=== PATIENT | female | born 1940 | race Caucasian/White ===

== ENCOUNTER 2016-09-04 13:52 | Inpatient (IN) ==
[2016-09-04] MEDS ORDERED: 0.9 % Sodium Chloride 1,000 ML ONE (18:19)
[2016-09-04] MEDS ORDERED: Naloxone 0.4 MG/ML INJ IVP PRN (18:39)
[2016-09-04 19:44] LABS: VBG HCO3 12.6 mEq/L (21-27); VBG PH 7.23 pH Units (7.32-7.42)
[2016-09-04 19:56] LABS: Calcium 8.2 mg/dL (8.6-10.8); Potassium 4.4 mEq/L (3.5-4.5)
[2016-09-04] MEDS ORDERED: Vancomycin 1,000 MG in D5% in Water 250 ML IVPB SCH (21:00)
[2016-09-04] MEDS: Sodium Bicarbonate 100 MEQ in D5% in Water 1,000 ML IVC SCH (21:00)
[2016-09-04] MEDS ORDERED: Vancomycin 1,000 MG in D5% in Water 250 ML IVPB ONE (21:00)
--- NOTE | 2016-09-04 21:40 | Internal Med History&Physical ---
<Bernarda Sharp - Last Filed: 09/05/16 00:52> Date of Encounter: 09/04/16 Time of Encounter: 21:37 Assessment and Plan (1) Acute renal failure Current visit: No Status: Acute BUN/Cr of 131/8.64 on presentation to [facility] ED. Patient reports only medical history of HTN on lisinopril, occasional advil usage prn for aches and pains. Patient also in metabolic acidosis with anion gap of 17, ABG pH 7.18. Patient denies any dysuria or change in urine output. CT of abd/pelvis showed no obstructive uropathy. UA showed large leuks, WBCs and moderate epithelials. 100mEq bicarb in D5 at 200mL/hr Bilateral renal Ultrasound and dopplers of renal arteries ordered. UA with micro, Urine protein, creatinine and sodium ordered Strict intake/output Renal diet Hold lisinopril, no NSAIDS Consulted Nephrology, spoke with Dr. Lewis, he will see patient tomorrow. Recheck of BMP this evening show improvement of BUN/Cr to 121/6.69. Recheck chemistry in the morning. Qualifiers: Acute renal failure type: unspecified Qualified Code(s): N17.9 - Acute kidney failure, unspecified (2) Metabolic acidosis Current visit: Yes Status: Acute Patient with metabolic acidosis, ABG shows pH 7.18, PCO2 29, PO2 77, HCO3 10.7. Anion Gap of 17. Likely related to kidney failure. 100mEq of bicarb in D5 at 200mL/hr Recheck of BMP showed Anion gap had improved from 17 to 14. VBG showed pH of 7.23. Recheck BMP in the morning Nephrology consulted, spoke with Dr. Lewis. (3) Sepsis Current visit: Yes Status: Acute Patient with RLL patchy infiltrate on CXR and Bilateral lower lobe centrilobular and tree-in-bud nodules on CT. Patient reporting dry cough, but denies any fever, chills or sweats. She is afebrile. WBC elevated to 12.2, RR 22 and HR in 90s, meeting sepsis criteria. Blood cultures ordered. Lactic acid ordered and normal at 0.7. Patient started on broad spectrum antibiotics, vanc and zosyn. Qualifiers: Sepsis type: sepsis due to unspecified organism Qualified Code(s): A41.9 - Sepsis, unspecified organism (4) Right lower lobe pneumonia Current visit: No Status: Acute Patient reported dry cough, but denied fever, chills, sweats. She reported poor appetite and dizziness. CXR shows RLL patchy infiltrate. WBC elevated to 12.2. Will give vanc and zosyn as patient meets sepsis criteria with mild tachycardia and tachypnea. Qualifiers: Pneumonia type: due to unspecified organism Qualified Code(s): J18.1 - Lobar pneumonia, unspecified organism (5) DVT prophylaxis Current visit: Yes Status: Acute Ambulate with assistance anti-embolic stockings heparin 5,000u SQ TID Internal Medicine - H&P: HPI Chief complaint: lightheaded Admitted From: Hospital to Hospital Transfer Plans for Post Hospital Care: Home History of present illness: Ms. Florentino is a 75 year old female with history of hypertension, who presented to [facility] emergency room with complaints of lightheadedness for the last several days she reported a decrease in appetite with stools once a day but otherwise had no episodes of passing out, no palpitations, no chest pain, no shortness of breath. She reports a dry cough. She denies any nausea, or vomiting. She denies any fever, chills, sweats. She denies any pain. Evaluation at [facility] revealed that she had acute kidney failure with BUN of 131 and creatinine of 8.64. She was in metabolic acidosis with an anion gap of 17 and pH of 7.18. White blood cell count was mildly elevated at 12.2. Head CT showed no acute abnormality. Chest x-ray showed right lower lobe patchy infiltrate. EKG showed normal sinus rhythm. CT of the abdomen and pelvis showed no obstructive uropathy, cholelithiasis, diverticulosis, left renal cyst, and bilateral lower lobe central lobe tumor and tree-in-bud nodules indicating post infectious origin. On exam, patient is alert and oriented, in no acute distress. Lungs are clear bilaterally to auscultation heart is regular rate and rhythm abdomen is nontender with positive bowel sounds. Past Med Surg Social Fam HX - Past Medical History Medical history: hypertension Psychiatric history: no psych history - Past Surgical History Surgical History: no surgical history - Social History Smoking Status: Current some day smoker (1/2 PPD) Smokeless Tobacco Status: No Alcohol use: none Drug use: none Internal Medicine - H&P: Meds Lisinopril [Zestril] 40 mg PO DAILY 09/04/16 [History] Allergies No Known Allergies Allergy (Verified 09/04/16 10:58) All Systems PM: A 10-system review of systems was performed and is negative for pertinent findings except as documented above in the HPI. - Constitutional Constitutional: no chills, no fever(s), no night sweats - EENT Eyes: no change in vision, no discharge, no pain, no photophobia Ears: no ear discharge, no ear pain, no tinnitus Nose, mouth and throat: no dysphagia, no nasal discharge, no neck pain, no sore throat - Cardiovascular Cardiovascular ROS IM: lightheadedness, no chest pain, no diaphoresis, no dyspnea, no palpitations, no syncope - Respiratory Respiratory: cough, no dyspnea, no wheezing, no excessive phlegm production - Gastrointestinal Gastrointestinal: diarrhea (Loose stool once per day for the last few days), no abdominal pain, no hematemesis, no hematochezia, no melena, no nausea, no vomiting - Genitourinary Genitourinary: no change in urinary stream, no dysuria, no flank pain, no hematuria - Musculoskeletal Musculoskeletal ROS IM: no numbness, no tingling - Integumentary Integumentary IM: no rash, no unusual bruising - Neurological Neurological ROS: no confusion, no convulsions, no focal weakness, no numbness, no tingling, no tremor(s) - Hematologic/Lymphatic Hematologic/Lymphatic: no easy bruising - Constitutional Vitals: Temp Pulse Resp BP Pulse Ox 97.9 F 97 21 143/62 96 09/04/16 19:19 09/04/16 19:19 09/04/16 19:19 09/04/16 19:19 09/04/16 19:19 General appearance: Present: A&O X 3, pleasant, no acute distress - Head Head exam: Present: atraumatic, normocephalic - Eye Eye exam: Present: PERRL, conjuntiva pink, sclera anicteric Pupils: Present: PERRL - Neck Neck exam general surgery: Present: supple, trachea midline. Absent: lymphadenopathy - Respiratory Respiratory exam: Present: CTAB. Absent: accessory muscle use, rales, rhonchi, wheezes - Cardiovascular Cardiovascular exam: Present: RRR, +S1, +S2. Absent: diastolic murmur, gallop, rubs, systolic murmur - GI/Abdominal GI/Abdominal exam: Present: normal bowel sounds, soft, no peritoneal signs. Absent: distended, tenderness - Extremities Exam Extremities exam: Present: warm, radial pulses palpable and symetrical. Absent : calf tenderness, cyanotic, pedal edema - Back Exam Back exam: Absent: CVA tenderness (L), CVA tenderness (R) - Neurological Exam Neurological exam: Present: CN II-XII intact, oriented X3, no focal deficits. Absent: facial droop, speech deficit - Skin Skin exam: Present: dry, intact Internal Med - H&P Results - Labs CBC & Chem 7: 09/04/16 19:37 Labs: BMP 09/04/16 19:37 Sodium 143 Potassium 4.4 Chloride 118 H Carbon Dioxide 11 L BUN 121 H Creatinine 6.69 H Glucose 82 Calcium 8.2 L D Labs from [facility] ED: Na 139 K 4.7 Cl 112 Co2 10 BUN 131 Cr 8.64 Glu 102 Hgb 11.0 Hct 32.8 WBC 12.2 Plt 255 ABG: pH 7.18 PCO2 29 PO2 77 HCO3 10.7 - ABG Interpretation ABG results: 09/04/16 19:37 VBG pH 7.23 L VBG pCO2 30 L VBG pO2 183 H VBG HCO3 12.6 L <Troy Mast - Last Filed: 09/08/16 10:37> Internal Medicine - H&P: HPI History of present illness: Ms. Florentino is a 75 year old female All Systems PM: A 10-system review of systems was performed and is negative for pertinent findings except as documented above in the HPI. - Constitutional Vitals: Temp Pulse Resp BP Pulse Ox 98.0 F 58 14 139/72 92 L 09/08/16 07:34 09/08/16 08:16 09/08/16 08:16 09/08/16 07:34 09/08/16 08:16 Internal Med - H&P Results - Labs CBC & Chem 7: 09/08/16 05:09 09/08/16 05:09 Labs: Short CBC 09/08/16 Range/Units 05:09 WBC 10.0 (4.3-11.1) K/mcL Hgb 8.4 L (11.5-15.4) g/dL Hct 26.7 L (35.3-44.9) % Plt Count 232 (140-400) K/mcL Neutrophils # 6.4 (1.6-8.9) K/mcL BMP 09/08/16 05:09 Sodium 141 Potassium 3.5 Chloride 106 Carbon Dioxide 24 BUN 40 H Creatinine 3.36 H Glucose 98 Calcium 9.0 Urine 09/08/16 Range/Units 09:50 Urine Color Yellow (Yellow) Urine Clarity Clear (Clear) Urine pH 7.0 (5.0-8.0) pH Units Ur Specific [place] 1.018 (1.010-1.025) Urine Protein 30 H (Neg-Trace) mg/dL Urine Glucose (UA) Normal (Normal) mg/dL - ABG Interpretation ABG results: 09/04/16 19:37 VBG pH 7.23 L VBG pCO2 30 L VBG pO2 183 H VBG HCO3 12.6 L - Impressions ITS Impressions Retroperitoneum Ultrasound 09/04/16 21:15 IMPRESSION: Increased echogenicity of the kidneys, suggestive of chronic medical renal disease. No hydronephrosis. Small cyst in the left kidney. D/ / Ricardo Mott MD / Ricardo Mott MD Interpreting Provider: Ricardo Mott MD - Attending Attestation I examined this patient and my medical decision-making was reviewed with the Advanced Practice Nurse. I agree with the documented findings, disposition and treatment plan as described except to the extent set forth below. The patient was sent from an outside hospital for evaluation and treatment of worsening renal failure and pneumonia. On exam she is in no acute distress awake alert oriented, heart is tachycardic S1-S2, lungs sounds are diminished, abdomen is soft. Plan: Will admit to our service, start IV fluids, broad-spectrum IV antibiotics. Consult nephrology.
[2016-09-04] MEDS: Piperacillin/Tazobactam 3.375 GM in D5% in Water (Mini-Bag+) 100 ML IVPB SCH (23:54)
[2016-09-05] MEDS ORDERED: Piperacillin/Tazobactam 2.25 GM in D5% in Water (Mini-Bag+) 100 ML IVPB SCH
[2016-09-05] MEDS: Sodium Bicarbonate 100 MEQ in D5% in Water 1,000 ML IVC SCH (04:41)
[2016-09-05] MEDS: *HR* Heparin 5,000 UNIT/ML VIAL SQ SCH ×3 (06:03→22:10)
[2016-09-05 06:20] LABS: Basophils % 0.1 %; Eosinophils % 0.4 %; Hemoglobin 8.7 g/dL (11.5-15.4); Immature Granulocytes % 1.5 % (0-4); Lymphocytes # 1.3 K/mcL (0.6-4.6); Mean Corpuscular HGB Conc 34.8 g/dL (31.6-35.5); Mean Platelet Volume 10.4 fL (9.4-12.4); Monocytes # 0.9 K/mcL (0.0-1.3); Monocytes % 8.4 %; Neutrophils # 8.4 K/mcL (1.6-8.9); Platelet Count 223 K/mcL (140-400); Red Blood Count 2.81 M/mcL (3.82-4.97); Red Cell Distribution Width 13.8 % (11.5-14.5); Segmented Neutrophils % 77.6 %
[2016-09-05 06:31] LABS: Calcium 8.5 mg/dL (8.6-10.8); Potassium 3.7 mEq/L (3.5-4.5)
[2016-09-05] MEDS: Piperacillin/Tazobactam 3.375 GM in D5% in Water (Mini-Bag+) 100 ML IVPB SCH ×2 (09:44→22:08)
[2016-09-05] MEDS ORDERED: Sodium Bicarbonate 100 MEQ in D5% in Water 1,000 ML IVC SCH (10:00)
[2016-09-05] MEDS ORDERED: *HR* Metoprolol 5 MG/5 ML VIAL IVP PRN (10:19)
[2016-09-05] MEDS ORDERED: GuaiFENesin Liq 200 MG/10 ML UDC PO PRN (10:21)
--- NOTE | 2016-09-05 10:22 | Internal Med Progress Note ---
Date of Encounter: 09/05/16 Time of Encounter: 10:19 - Assessment and plan (1) Acute renal failure Current Visit: No Status: Acute Assessment and plan: Acute on chronic kidney injury Retroperitoneal US: Increased echogenicity of the kidneys suggestive of chronic medial renal disease Renal function improved from previous day May have underlying component of RTA Noted to have bicarb deficit of 3amps-improved since admission Due to hyperglycemia will change the bicarb drip to 2amps of bicarb in 0.45%NS run at 125cc/hr awaiting renal artery US Nephrology consultation requested continue to hold nephrotoxic agents (holding Lisinopril at this time) Will continue to monitor renal function closely. Qualifiers: Acute renal failure type: unspecified Qualified Code(s): N17.9 - Acute kidney failure, unspecified (2) Metabolic acidosis Current Visit: Yes Status: Acute Assessment and plan: Improved from previous day Plan as listed above Unclear of patient's baseline metabolic panel (3) Right lower lobe pneumonia Current Visit: No Status: Acute Assessment and plan: Will continue empiric IV abx at this time Pharmacy to renally dose abx and closely monitor Vanco trough follow up blood cultures Qualifiers: Pneumonia type: due to unspecified organism Qualified Code(s): J18.1 - Lobar pneumonia, unspecified organism (4) Sepsis Current Visit: Yes Status: Resolved Assessment and plan: Likely secondary to PNA resolved at this time will continue treatment as listed above Qualifiers: Sepsis type: sepsis due to unspecified organism Qualified Code(s): A41.9 - Sepsis, unspecified organism (5) Hypertension Current Visit: Yes Status: Acute Assessment and plan: History of HTN holding Lisinopril at this time, given renal function BP within acceptable range Added Metoprolol 5mg IV q6h PRN SBP>150 and HR>100 Will continue to closely monitor BP. Qualifiers: Hypertension type: essential hypertension Qualified Code(s): I10 - Essential (primary) hypertension (6) DVT prophylaxis Current Visit: Yes Status: Acute Assessment and plan: Heparin SQ (7) Tobacco abuse Current Visit: Yes Status: Acute Assessment and plan: Smoking cessation counseling provided patient states she does not smoke too much daily and is trying to cut down Refused nicotine replacement therapy at this time. - Subjective Interval history: Patient seen and examined at bedside. Resting in bed and reports of feeling better. No discomfort reported at this time. Noted to have persistent cough. No overnight issues reported. Reports of being an everyday smoker. - Constitutional Vitals: Temp Pulse Resp BP Pulse Ox 98.2 F 76 17 139/62 96 09/05/16 06:41 09/05/16 09:52 09/05/16 06:41 09/05/16 06:41 09/05/16 09:52 General appearance: Present: A&O X 3, pleasant, no acute distress - Head Head exam: Present: atraumatic, normocephalic - Eye Eye exam: Present: normal appearance, conjuntiva pink, sclera anicteric - Respiratory Respiratory exam: Absent: respiratory distress, wheezes (coarse breath sounds bilaterally) - Cardiovascular Cardiovascular exam: Present: RRR, +S1, +S2. Absent: diastolic murmur, gallop, rubs, systolic murmur - GI/Abdominal GI/Abdominal exam: Present: normal bowel sounds, soft, no peritoneal signs. Absent: distended, tenderness - Extremities Exam Extremities exam: Present: warm, radial pulses palpable and symetrical. Absent : calf tenderness, cyanotic, pedal edema - Psychiatric Psychiatric exam: Present: normal affect, normal mood Internal Medicine: Result - Labs CBC & Chem 7: 09/05/16 05:38 09/05/16 05:38 Labs: Short CBC 09/05/16 Range/Units 05:38 WBC 10.8 (4.3-11.1) K/mcL Hgb 8.7 L D (11.5-15.4) g/dL Hct 25.0 L (35.3-44.9) % Plt Count 223 (140-400) K/mcL Neutrophils # 8.4 (1.6-8.9) K/mcL BMP 09/04/16 09/05/16 19:37 05:38 Sodium 143 139 Potassium 4.4 3.7 Chloride 118 H 110 H Carbon Dioxide 11 L 18 L BUN 121 H 102 H Creatinine 6.69 H 5.48 H Glucose 82 208 H Calcium 8.2 L D 8.5 L - Impressions Impressions Retroperitoneum Ultrasound 09/04/16 21:15 IMPRESSION: Increased echogenicity of the kidneys, suggestive of chronic medical renal disease. No hydronephrosis. Small cyst in the left kidney. D/ / Ricardo Mott MD / Ricardo Mott MD Interpreting Provider: Ricardo Mott MD Consult Discharge Plan - Plan Referrals: NO,PCP [Primary Care Provider] -
[2016-09-05] MEDS: Sodium Bicarbonate 100 MEQ in 0.45 % Sodium Chloride 1,000 ML IVC SCH ×2 (11:49→22:09)
--- NOTE | 2016-09-05 11:59 | Nephrology Consult Note ---
Date of Encounter: 09/05/16 Time of Encounter: 11:35 Assessment and Plan (1) Acute renal failure Current Visit: No Status: Acute ALLYSON in setting of sepsis, RLL pneumonia, decreased oral intake. No prior labs to indicate underlying CKD. Metabolic acidosis improving. Continue D5W/Bicarb IV fluids. No obstructive uropathy on CT. Renal fct improving, creat 5.48. Current urine output today 600cc. Avoid nephrotoxins. Renal workup in progress. Qualifiers: Acute renal failure type: unspecified Qualified Code(s): N17.9 - Acute kidney failure, unspecified History of Present Illness - Reason for Consult Acute Kidney Injury - History of Present Illness Ms. Florentino is a 75 year old female transferred from [facility] with ALLYSON and metabolic acidosis, creat 8.64, BUN 131, anion gap 17, pH 7.18. Ms Florentino complained of lightheadedness, decrease in appetite, denied N/V or diarrhea. She admitted dry cough, denied fever, chills, SOB or chest pain. WBC 12.2, Head CT no acute process, CXR showed RLL patchy infiltrate. CT of abd/pelvis negative for obstructive uropathy. At today's consult Ms. Florentino denies diabetes, admits hypertension but does not know how long she has had but states under good control. Admits remote NSAID use on rare occasion but denies recent use. She denies proteinuria, hematuria, renal stones or UTI's. She denies LE swelling or difficulty emptying bladder. Past Med Surg Social Fam HX - Past Medical History Medical history: hypertension Psychiatric history: no psych history - Past Surgical History Surgical History: no surgical history - Social History Smoking Status: Current some day smoker (1/2 PPD) Smokeless Tobacco Status: No Alcohol use: none Drug use: none Medications and Allergies Lisinopril [Zestril] 40 mg PO DAILY 09/04/16 [History] Allergies No Known Allergies Allergy (Verified 09/04/16 10:58) Review of Systems All Systems: reviewed and no additional remarkable complaints except as stated Exam - Vital Signs Vital signs: Initial Vital Signs Temp Pulse Resp BP Pulse Ox 98.1 F 99 22 122/77 97 09/04/16 16:23 09/04/16 16:23 09/04/16 16:23 09/04/16 16:23 09/04/16 16:23 Vital Signs - Last 8 Hours Temp Pulse Resp BP Pulse Ox 09/05/16 11:08 98.1 F 88 18 147/60 95 09/05/16 09:52 76 96 09/05/16 06:41 98.2 F 93 17 139/62 97 09/05/16 05:05 98.1 F 84 20 143/72 95 09/05/16 04:00 77 Intake and Output 09/04/16 09/05/16 09/05/16 23:59 07:59 15:59 Intake Total 1350 / 1350 1400 / 1400 Output Total 600 / 600 Balance 750 / 750 1400 / 1400 Intake: IV Fluids 1350 / 1350 1100 / 1100 Sodium Bicarbonate 100 1000 / 1000 1100 / 1100 MEQ In Dextrose 5% 1,000 ML @ 200 mls/hr IVC . Q5H30M [facility] Rx#:[id number] Zosyn 3.375 GM In 100 / 100 Dextrose 5% (Minibag+) 100 ML 100 ML @ 25 mls/hr IVPB Q12H [facility] Rx#: [id number] Vancocin 1,000 MG In 250 / 250 Dextrose 5% 250 ML @ 166. 667 mls/hr IVPB ONCE ONE Rx#:[id number] Oral 300 / 300 Output: Urine 600 / 600 Other: Meal Breakfast Percent of Meal Consumed 25% Stool Size Small Stool Consistency loose Stool Color Brown # Voids 1 # Bowel Movement Diapers 1 Weight 64.3 kg - General Appearance General appearance: well-developed, well-nourished, appears started age EENT: mucous membranes moist Neck: no JVD, no carotid bruit Additional Comments: harsh B/L breath sounds Cardiology: no edema, regular rate, regular rhythm Gastrointestinal: normoactive bowel sounds, no tenderness, no guarding Integumentary: no rash, warm and dry Neurologic: alert and oriented x3 Psychiatric: mood/affect appropriate, cooperative Results - Lab Results 09/05/16 05:38 09/05/16 05:38 Most recent lab results Calcium 8.5 mg/dL (8.6-10.8) L 09/05/16 05:38 Consult Discharge Plan - Plan Referrals: NO,PCP [Primary Care Provider] -
[2016-09-05 13:51] LABS: Creatinine,Urine 41 mg/dL; Microalbum/Creatinine Ratio,Ur 73 (0-30); Microalbumin,Urine 30 mg/L
[2016-09-06] MEDS ORDERED: Vancomycin 1,000 MG in D5% in Water 250 ML IVPB ONE
[2016-09-06 06:22] LABS: Basophils % 0.1 %; Eosinophils % 0.3 %; Hematocrit 26.3 % (35.3-44.9); Hemoglobin 8.9 g/dL (11.5-15.4); Lymphocytes # 1.1 K/mcL (0.6-4.6); Lymphocytes % 12.1 %; Mean Corpuscular HGB Conc 33.8 g/dL (31.6-35.5); Mean Corpuscular Hemoglobin 29.9 pg (28.0-33.3); Mean Corpuscular Volume 88.3 fL (83.0-100.0); Mean Platelet Volume 9.9 fL (9.4-12.4); Monocytes % 10.6 %; Neutrophils # 7.1 K/mcL (1.6-8.9); Platelet Count 230 K/mcL (140-400); Red Blood Count 2.98 M/mcL (3.82-4.97); Red Cell Distribution Width 13.5 % (11.5-14.5); Segmented Neutrophils % 74.9 %
[2016-09-06 06:36] LABS: Calcium 8.1 mg/dL (8.6-10.8); Magnesium 1.2 mg/dL (1.6-2.6); Phosphorous 2.9 mg/dL (2.3-4.7); Potassium 3.1 mEq/L (3.5-4.5)
[2016-09-06] MEDS: *HR* Heparin 5,000 UNIT/ML VIAL SQ SCH ×3 (06:55→22:07)
[2016-09-06] MEDS: Piperacillin/Tazobactam 3.375 GM in D5% in Water (Mini-Bag+) 100 ML IVPB SCH ×2 (08:19→22:09)
[2016-09-06] MEDS ORDERED: Aminoglycoside Consult 1 EACH MC ONE (08:50)
--- NOTE | 2016-09-06 08:57 | Nephrology Progress Note ---
Date of Encounter: 09/06/16 Time of Encounter: 08:50 - Assessment and Plan (1) Acute renal failure Current Visit: No Status: Acute ALLYSON in setting of sepsis, RLL pneumonia, decreased oral intake. No prior labs to indicate underlying CKD. Metabolic acidosis improved. No obstructive uropathy on CT. Renal fct improving, creat 3.84. Urine output 1275cc. Avoid nephrotoxins. Renal workup in progress. Qualifiers: Acute renal failure type: unspecified Qualified Code(s): N17.9 - Acute kidney failure, unspecified Subjective Interval history: Sitting up in bed, eating breakfast though states appetite remains down. Overall states starting to feel better. Objective - Vital Signs Vital signs: Vital Signs Temp Pulse Resp BP Pulse Ox 09/06/16 08:20 98.0 F 58 12 159/77 93 L 09/06/16 03:59 98.2 F 87 16 143/69 94 L 09/06/16 03:55 87 09/06/16 00:42 97.9 F 103 15 142/78 94 L 09/05/16 20:18 98.1 F 87 16 158/67 93 L 09/05/16 19:40 71 09/05/16 16:11 98.1 F 88 14 146/66 94 L 09/05/16 15:17 76 09/05/16 11:59 86 96 09/05/16 11:08 98.1 F 88 18 147/60 95 09/05/16 09:52 76 96 Intake and Output 09/05/16 09/06/16 09/06/16 22:59 07:59 15:59 Intake Total 903 / 903 Output Total 100 / 100 Balance 803 / 803 Intake: IV Fluids 903 / 903 Sodium Bicarbonate 100 903 / 903 MEQ In 0.45% Sodium Chloride 1000 Ml 1000 Ml 1,000 ML @ 125 mls/hr IVC .Q8H48M [facility] Rx#: [id number] Zosyn 3.375 GM In Dextrose 5% (Minibag+) 100 ML 100 ML @ 25 mls/hr IVPB Q12H [facility] Rx#: [id number] Vancocin 1,000 MG In Dextrose 5% 250 ML @ 166. 667 mls/hr IVPB ONCE ONE Rx#:[id number] Oral Output: Urine 100 / 100 Other: Meal Percent of Meal Consumed Stool Size Stool Consistency Stool Color # Voids # Bowel Movements Weight Patient Weight 09/07/16 00:59 Weight 63.2 kg - General Appearance General appearance: Present: well-developed, well-nourished, appears started age EENT: Present: mucous membranes moist Neck: Present: no JVD Additional Comments: scattered rhonchi right base Cardiology: Present: no edema, regular rate Gastrointestinal: Present: normoactive bowel sounds, no tenderness Integumentary: Present: warm and dry Neurologic: Present: alert and oriented x3 Psychiatric: Present: mood/affect appropriate, cooperative - Lab 09/06/16 06:03 09/06/16 06:03 Most recent lab results Calcium 8.1 mg/dL (8.6-10.8) L 09/06/16 06:03 Phosphorus 2.9 mg/dL (2.3-4.7) 09/06/16 06:03 Magnesium 1.2 mg/dL (1.6-2.6) L 09/06/16 06:03 Urine Creatinine 41 mg/dL 09/05/16 11:46 Consult Discharge Plan - Plan Referrals: NO,PCP [Primary Care Provider] -
[2016-09-06] MEDS ORDERED: 0.9 % Sodium Chloride 250 ML ONE (09:26)
[2016-09-06] MEDS ORDERED: Magnesium Sulfate 2 GM in D5% in Water 100 ML IVPB ONE (11:15)
[2016-09-06] MEDS ORDERED: Ondansetron 4 MG/2 ML VIAL IVP PRN (11:15)
--- NOTE | 2016-09-06 11:17 | Internal Med Progress Note ---
Date of Encounter: 09/06/16 Time of Encounter: 10:25 - Assessment and plan (1) Acute on chronic renal failure Current Visit: Yes Status: Acute Assessment and plan: Improving Acute on chronic kidney injury Non-oliguric, prerenal Multifactorial: Dehydration, Sepsis, medications Retroperitoneal US: Increased echogenicity of the kidneys suggestive of chronic medial renal disease Renal function improved today May have underlying component of RTA Renal artery doppler WNL Continue IVF Continue strict I/O monitoring Encourage liberal fluid intake Monitor Chem Continue to avoid nephrotoxins . (2) DVT prophylaxis Current Visit: Yes Status: Acute Assessment and plan: Heparin SQ (3) Hypertension Current Visit: Yes Status: Acute Assessment and plan: D/C PRN metoprolol and start po labetalol HTN is Uncontrolled Monitor closely and titrate and add medications prn Qualifiers: Hypertension type: essential hypertension Qualified Code(s): I10 - Essential (primary) hypertension (4) Metabolic acidosis Current Visit: Yes Status: Acute Assessment and plan: Resolved CO2 today 28 (5) Tobacco abuse Current Visit: Yes Status: Acute Assessment and plan: Smoking cessation counseling provided patient states she does not smoke too much daily and is trying to cut down Refused nicotine replacement therapy at this time. (6) Sepsis Current Visit: Yes Status: Resolved Assessment and plan: Likely secondary to PNA resolved at this time will continue treatment as listed above Qualifiers: Sepsis type: sepsis due to unspecified organism Qualified Code(s): A41.9 - Sepsis, unspecified organism (7) Right lower lobe pneumonia Current Visit: No Status: Acute Assessment and plan: Will continue empiric IV abx at this time-Day 3 of Zosyn and Vanco Blood culture preliminary negative X4 D/C Vanco Urine culture with dong-sensitive E.Coli, continue Zosyn Qualifiers: Pneumonia type: due to unspecified organism Qualified Code(s): J18.1 - Lobar pneumonia, unspecified organism - Subjective Interval history: 75 Y/o F Seen at bedside Initial encounter She has a PMH of CKD ???Stage, Tobacco abuse and HTN She is admitted and being managed for ALLYSON on CKD, Sepsis secondary to RLL pneumonia, Metabolic acidosis, She reports feeling better She attests improvement in her respiratory status and she does mention she is aware she has chronic kidney disease but unknown stage Cr today has imroved to 3.85, K 3.1, CO2 28 Nephrology is co-managing, input appreciated - Constitutional Vitals: Temp Pulse Resp BP Pulse Ox 98.0 F 94 12 159/77 93 L 09/06/16 08:20 09/06/16 08:20 09/06/16 08:20 09/06/16 08:20 09/06/16 09:09 General appearance: Present: A&O X 3, pleasant, no acute distress - Head Head exam: Present: atraumatic, normocephalic - Eye Eye exam: Present: PERRL, conjuntiva pink, sclera anicteric Pupils: Present: PERRL - Neck Neck exam general surgery: Present: supple, trachea midline. Absent: lymphadenopathy - Respiratory Respiratory exam: Present: CTAB. Absent: accessory muscle use, rales, rhonchi, wheezes - Cardiovascular Cardiovascular exam: Present: RRR, +S1, +S2. Absent: diastolic murmur, gallop, rubs, systolic murmur - GI/Abdominal GI/Abdominal exam: Present: normal bowel sounds, soft, no peritoneal signs. Absent: distended, tenderness - Extremities Exam Extremities exam: Present: warm, radial pulses palpable and symetrical. Absent : calf tenderness, cyanotic, pedal edema - Neurological Exam Neurological exam: Present: CN II-XII intact, oriented X3, no focal deficits. Absent: pronater drift, facial droop, speech deficit - Skin Skin exam: Present: dry Internal Medicine: Result - Labs CBC & Chem 7: 09/06/16 06:03 09/06/16 06:03 Labs: Short CBC 09/06/16 Range/Units 06:03 WBC 9.4 (4.3-11.1) K/mcL Hgb 8.9 L (11.5-15.4) g/dL Hct 26.3 L (35.3-44.9) % Plt Count 230 (140-400) K/mcL Neutrophils # 7.1 (1.6-8.9) K/mcL BMP 09/06/16 06:03 Sodium 143 Potassium 3.1 L Chloride 105 Carbon Dioxide 28 BUN 63 H D Creatinine 3.84 H Glucose 119 H Calcium 8.1 L Consult Discharge Plan - Plan Referrals: NO,PCP [Primary Care Provider] -
--- NOTE | 2016-09-06 15:14 | Arterial Study Report ---
Renal Duplex Patient Name:Radha Florentino Order Number:[id number] Procedure Date:09/05/2016 Date:1940Age:75 yrs Gender:Female Location:[facility] Room #: 2N04 Elevator Constructor Hydraulic:Jazmín Damon RVT Referring MD:Bernarda Sharp, SENIOR VALIDATION ENGINEER cooperative extension agent:None Reading MD:Atul Rojas MD , FACS Risk Factors Yes/No Hypertension Yes Smoking Current Yes Impressions: Findings: bilateral renal arteries are hemodynamically well maintained. Findings Renal Anatomy: The right kidney size measures 9.3 x 4.6 x 3.1 cm. The left kidney size measures 10.5 x 4.5 x 3.3 cm. Prior Study: No prior study available for comparison. Renal Duplex Right RAR:.8 Left RAR:1.0 Side Vessel PSV EDV RI PI Accel Aorta 126.00 18.00 0.86 Left Proximal Renal Artery 130.00 23.00 0.82 Left Mid Renal Artery 114.00 16.00 0.86 Left Distal Renal Artery 39.00 7.00 0.82 Left Renal Artery Hilum 59.00 7.00 0.88 Right Proximal Renal Artery 102.00 10.00 0.90 Right Mid Renal Artery 116.00 16.00 0.86 Right Distal Renal Artery 62.00 7.00 0.89 Right Renal Artery Hilum 37.00 4.00 0.89 Updated by Atul Rojsa MD, FACS on 09/06/2016 3:10:10 PM Atul Rojas MD electronically signed on 09/06/2016 3:10:41 PM with status of Final
[2016-09-07 05:16] LABS: Basophils % 0.2 %; Eosinophils # 0.1 K/mcL (0.0-0.6); Eosinophils % 1.1 %; Hematocrit 26.3 % (35.3-44.9); Hemoglobin 8.6 g/dL (11.5-15.4); Immature Granulocytes % 2.8 % (0-4); Lymphocytes # 1.3 K/mcL (0.6-4.6); Lymphocytes % 14.5 %; Mean Corpuscular HGB Conc 32.7 g/dL (31.6-35.5); Mean Corpuscular Hemoglobin 29.9 pg (28.0-33.3); Mean Corpuscular Volume 91.3 fL (83.0-100.0); Mean Platelet Volume 9.8 fL (9.4-12.4); Monocytes # 1.1 K/mcL (0.0-1.3); Monocytes % 11.8 %; Neutrophils # 6.2 K/mcL (1.6-8.9); Platelet Count 211 K/mcL (140-400); Red Blood Count 2.88 M/mcL (3.82-4.97); Red Cell Distribution Width 13.4 % (11.5-14.5); Segmented Neutrophils % 69.6 %
[2016-09-07 05:39] LABS: Magnesium 1.8 mg/dL (1.6-2.6); Phosphorous 3.9 mg/dL (2.3-4.7); Potassium 3.4 mEq/L (3.5-4.5)
[2016-09-07] MEDS: *HR* Heparin 5,000 UNIT/ML VIAL SQ SCH ×2 (06:48→15:27)
[2016-09-07] MEDS: Piperacillin/Tazobactam 3.375 GM in D5% in Water (Mini-Bag+) 100 ML IVPB SCH ×2 (07:37→21:32)
--- NOTE | 2016-09-07 09:42 | Nephrology Progress Note ---
Date of Encounter: 09/07/16 Time of Encounter: 09:40 - Assessment and Plan (1) Acute renal failure Current Visit: No Status: Acute The patient's renal function continues to improve with her current treatment. She remains on antibiotics for her pneumonia. I am going to contact her primary care provider to see if we can get a baseline creatinine. Qualifiers: Acute renal failure type: unspecified Qualified Code(s): N17.9 - Acute kidney failure, unspecified (2) Right lower lobe pneumonia Current Visit: No Status: Acute Qualifiers: Pneumonia type: due to unspecified organism Qualified Code(s): J18.1 - Lobar pneumonia, unspecified organism Subjective Interval history: Patient reports she is feeling better. She denies any cough sputum production or shortness of breath. Her renal function continues to improve. We do not know what her baseline renal function is. Objective - Vital Signs Vital signs: Vital Signs Temp Pulse Resp BP Pulse Ox 09/07/16 07:57 94 L 09/07/16 07:51 62 09/07/16 07:39 98.1 F 62 16 142/62 94 L 09/07/16 03:23 98.0 F 64 16 121/54 94 L 09/06/16 23:48 97.9 F 64 16 118/44 91 L 09/06/16 20:15 97.9 F 86 16 93 L 09/06/16 19:27 98.0 F 82 16 151/67 95 09/06/16 15:40 157/70 09/06/16 15:00 98.0 F 92 14 169/69 93 L 09/06/16 11:15 98.8 F 88 12 160/75 93 L Intake and Output 09/06/16 09/07/16 09/07/16 23:59 07:59 15:59 Intake Total 554 / 554 100 / 100 120 / 120 Output Total 200 / 200 Balance 354 / 354 100 / 100 120 / 120 Intake: IV Fluids 104 / 104 100 / 100 Magnesium Sulfate 2 GM In 104 / 104 Dextrose 5% 100 ML @ 100 mls/hr IVPB ONCE ONE Rx# :[id number] Zosyn 3.375 GM In 100 / 100 Dextrose 5% (Minibag+) 100 ML 100 ML @ 25 mls/hr IVPB Q12H [facility] Rx#: [id number] Oral 450 / 450 120 / 120 Output: Urine 200 / 200 Other: Meal Dinner Breakfast Percent of Meal Consumed 0% 10% Stool Size Small Small Stool Consistency liquid loose Stool Characteristics Mucoid Stool Color Brown Brown Yellow Blood Tinged # Voids 1 Weight 62.2 kg Patient Weight 09/07/16 23:59 Weight 62.2 kg - General Appearance Exam: Patient is alert and oriented. She is in no acute distress. Lungs basilar rales on the left. Heart regular rate and rhythm. Abdomen is benign. There is no lower extremity swelling. - Lab 09/07/16 04:58 09/07/16 04:58 Most recent lab results Calcium 9.0 mg/dL (8.6-10.8) 09/07/16 04:58 Phosphorus 3.9 mg/dL (2.3-4.7) 09/07/16 04:58 Magnesium 1.8 mg/dL (1.6-2.6) 09/07/16 04:58 Urine Creatinine 41 mg/dL 09/05/16 11:46 Consult Discharge Plan - Plan Referrals: NO,PCP [Primary Care Provider] -
--- NOTE | 2016-09-07 14:15 | Internal Med Progress Note ---
Date of Encounter: 09/07/16 Time of Encounter: 10:45 - Assessment and plan (1) Acute on chronic renal failure Current Visit: Yes Status: Acute Assessment and plan: Improving Acute on chronic kidney injury Non-oliguric, prerenal Multifactorial: Dehydration, Sepsis, medications Retroperitoneal US: Increased echogenicity of the kidneys suggestive of chronic medial renal disease Renal function improved today May have underlying component of RTA Renal artery doppler WNL D/C IVF Continue strict I/O monitoring Encourage liberal fluid intake Monitor Chem Continue to avoid nephrotoxins . (2) DVT prophylaxis Current Visit: Yes Status: Acute Assessment and plan: Heparin SQ (3) Hypertension Current Visit: Yes Status: Acute Assessment and plan: hypertension is better controlled on labetalol by mouth. Continue same. Qualifiers: Hypertension type: essential hypertension Qualified Code(s): I10 - Essential (primary) hypertension (4) Metabolic acidosis Current Visit: Yes Status: Acute Assessment and plan: Resolved CO2 today 26 (5) Tobacco abuse Current Visit: Yes Status: Acute Assessment and plan: Smoking cessation counseling provided patient states she does not smoke too much daily and is trying to cut down Refused nicotine replacement therapy at this time. (6) Sepsis Current Visit: Yes Status: Resolved Assessment and plan: Likely secondary to PNA resolved at this time will continue treatment as listed above Qualifiers: Sepsis type: sepsis due to unspecified organism Qualified Code(s): A41.9 - Sepsis, unspecified organism (7) Right lower lobe pneumonia Current Visit: No Status: Acute Assessment and plan: Will continue empiric IV abx at this time-Day 4 of Zosyn Blood culture preliminary negative X4 Urine culture with dong-sensitive E.Coli, continue Zosyn Qualifiers: Pneumonia type: due to unspecified organism Qualified Code(s): J18.1 - Lobar pneumonia, unspecified organism - Subjective Interval history: 75 Y/o F Seen at bedside She has a PMH of CKD ???Stage, Tobacco abuse and HTN She is admitted and being managed for ALLYSON on CKD, Sepsis secondary to RLL pneumonia, Metabolic acidosis, She reports feeling better Creatinine continues to improve, patient is afebrile, tachycardia and tachypnea has resolved - Constitutional Vitals: Temp Pulse Resp BP Pulse Ox 98 F 62 18 116/45 96 09/07/16 12:00 09/07/16 12:00 09/07/16 12:00 09/07/16 12:00 09/07/16 12:00 General appearance: Present: A&O X 3, pleasant, no acute distress - Head Head exam: Present: atraumatic, normocephalic - Eye Eye exam: Present: PERRL, conjuntiva pink, sclera anicteric Pupils: Present: PERRL - Neck Neck exam general surgery: Present: supple, trachea midline. Absent: lymphadenopathy - Respiratory Respiratory exam: Present: CTAB. Absent: accessory muscle use, rales, rhonchi, wheezes - Cardiovascular Cardiovascular exam: Present: RRR, +S1, +S2. Absent: diastolic murmur, gallop, rubs, systolic murmur - GI/Abdominal GI/Abdominal exam: Present: normal bowel sounds, soft, no peritoneal signs. Absent: distended, tenderness - Extremities Exam Extremities exam: Present: warm, radial pulses palpable and symetrical. Absent : calf tenderness, cyanotic, pedal edema - Neurological Exam Neurological exam: Present: CN II-XII intact, oriented X3, no focal deficits. Absent: pronater drift, facial droop, speech deficit - Skin Skin exam: Present: dry Internal Medicine: Result - Labs CBC & Chem 7: 09/07/16 04:58 09/07/16 04:58 Labs: Short CBC 09/07/16 Range/Units 04:58 WBC 9.0 (4.3-11.1) K/mcL Hgb 8.6 L (11.5-15.4) g/dL Hct 26.3 L (35.3-44.9) % Plt Count 211 (140-400) K/mcL Neutrophils # 6.2 (1.6-8.9) K/mcL BMP 09/07/16 04:58 Sodium 142 Potassium 3.4 L Chloride 107 Carbon Dioxide 26 BUN 48 H D Creatinine 3.47 H Glucose 108 H Calcium 9.0 Consult Discharge Plan - Plan Referrals: URSZULA IGNACIO [Other] - 09/15/16 1:20 pm NO,PCP [Non-Partnered Physician] -
--- NOTE | 2016-09-07 15:24 | Electrocardiograph Report ---
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
[2016-09-08 05:27] LABS: Basophils % 0.3 %; Eosinophils # 0.2 K/mcL (0.0-0.6); Eosinophils % 2.3 %; Hematocrit 26.7 % (35.3-44.9); Hemoglobin 8.4 g/dL (11.5-15.4); Immature Granulocytes % 3.7 % (0-4); Lymphocytes # 1.9 K/mcL (0.6-4.6); Lymphocytes % 18.6 %; Mean Corpuscular HGB Conc 31.5 g/dL (31.6-35.5); Mean Corpuscular Hemoglobin 29.5 pg (28.0-33.3); Mean Corpuscular Volume 93.7 fL (83.0-100.0); Mean Platelet Volume 10.1 fL (9.4-12.4); Monocytes # 1.1 K/mcL (0.0-1.3); Monocytes % 11.2 %; Neutrophils # 6.4 K/mcL (1.6-8.9); Platelet Count 232 K/mcL (140-400); Red Blood Count 2.85 M/mcL (3.82-4.97); Red Cell Distribution Width 13.2 % (11.5-14.5); Segmented Neutrophils % 63.9 %
[2016-09-08 05:46] LABS: Magnesium 1.8 mg/dL (1.6-2.6); Phosphorous 3.5 mg/dL (2.3-4.7); Potassium 3.5 mEq/L (3.5-4.5)
[2016-09-08] MEDS: *HR* Heparin 5,000 UNIT/ML VIAL SQ SCH ×2 (07:49→07:51)
[2016-09-08] MEDS: Piperacillin/Tazobactam 3.375 GM in D5% in Water (Mini-Bag+) 100 ML IVPB SCH (07:56)
--- NOTE | 2016-09-08 08:06 | Nephrology Progress Note ---
Date of Encounter: 09/08/16 Time of Encounter: 08:04 - Assessment and Plan (1) Acute renal failure Current Visit: No Status: Acute The patient is a clinical picture of acute kidney injury superimposed on chronic kidney disease in the setting of pneumonia and sepsis. Her renal function continues to improve. Back in October 2015 her creatinine was 2.2. She will have follow-up for her kidney disease as an outpatient following hospital discharge. Qualifiers: Acute renal failure type: unspecified Qualified Code(s): N17.9 - Acute kidney failure, unspecified (2) Right lower lobe pneumonia Current Visit: No Status: Acute Qualifiers: Pneumonia type: due to unspecified organism Qualified Code(s): J18.1 - Lobar pneumonia, unspecified organism Subjective Interval history: The patient reports she is feeling well. She denies any cough sputum production or shortness of breath. Serum creatinine continues to improve. Outpatient lab studies show that she had a creatinine of 2.2 back in October 2015. Therefore she has a history of underlying chronic kidney disease which she was unaware of. Objective - Vital Signs Vital signs: Vital Signs Temp Pulse Resp BP Pulse Ox 09/08/16 07:34 98.0 F 71 14 139/72 81 L 09/08/16 05:32 58 16 94 L 09/08/16 04:03 98.1 F 97 16 139/52 94 L 09/08/16 00:26 58 16 98 09/07/16 23:26 54 16 124/62 98 09/07/16 21:39 97.9 F 51 18 115/71 94 L 09/07/16 15:38 53 09/07/16 15:30 98.1 F 60 18 142/62 95 09/07/16 12:00 98 F 62 18 116/45 96 09/07/16 11:13 69 09/07/16 10:00 94 L Intake and Output 09/07/16 09/08/16 09/08/16 23:59 07:59 15:59 Intake Total 100 / 100 Output Total 100 / 100 Balance 0 / 0 Intake: IV Fluids 100 / 100 Zosyn 3.375 GM In 100 / 100 Dextrose 5% (Minibag+) 100 ML 100 ML @ 25 mls/hr IVPB Q12H [facility] Rx#: [id number] Output: Urine 100 / 100 Other: Stool Size Small Stool Consistency soft Stool Characteristics Pasty Stool Color Brown - General Appearance Exam: Patient is alert and oriented. She is in no acute distress. Lungs demonstrate some rales in the left base and some mild rales in the right base. Heart regular rate and rhythm. Abdomen is benign. There is no lower extremity swelling. - Lab 09/08/16 05:09 09/08/16 05:09 Most recent lab results Calcium 9.0 mg/dL (8.6-10.8) 09/08/16 05:09 Phosphorus 3.5 mg/dL (2.3-4.7) 09/08/16 05:09 Magnesium 1.8 mg/dL (1.6-2.6) 09/08/16 05:09 Urine Creatinine 41 mg/dL 09/05/16 11:46 Consult Discharge Plan - Plan Referrals: URSZULA IGNACIO [Other] - 09/15/16 1:20 pm NO,PCP [Non-Partnered Physician] -
--- NOTE | 2016-09-08 09:24 | Discharge Summary ---
Date of Encounter: 09/08/16 Time of Encounter: 09:23 - Discharge Diagnosis (1) Acute on chronic renal failure Priority: Primary Status: Acute (2) DVT prophylaxis Priority: Secondary Status: Acute (3) Hypertension Priority: Secondary Status: Chronic Qualifiers: Hypertension type: essential hypertension Qualified Code(s): I10 - Essential (primary) hypertension (4) Metabolic acidosis Priority: Primary Status: Acute (5) Tobacco abuse Priority: Secondary Status: Chronic (6) Sepsis Priority: Primary Status: Resolved Qualifiers: Sepsis type: sepsis due to unspecified organism Qualified Code(s): A41.9 - Sepsis, unspecified organism (7) Right lower lobe pneumonia Priority: Primary Status: Acute Qualifiers: Pneumonia type: due to unspecified organism Qualified Code(s): J18.1 - Lobar pneumonia, unspecified organism - Discharge Medications Prescriptions: Amoxicillin/Clavulanate [Augmentin] 875 mg PO BIDWM #6 tablet Labetalol [Trandate] 300 mg PO BID #90 tablet Home Medications: Amoxicillin/Clavulanate [Augmentin] 875 mg PO BIDWM #6 tablet 09/08/16 [Rx] Labetalol [Trandate] 300 mg PO BID #90 tablet 09/08/16 [Rx] Allergies/Adverse Reactions: Allergies No Known Allergies Allergy (Verified 09/04/16 10:58) Procedures/tests Complete & Pending: Procedures Performed prior 72 hours Category Date Time Status ECG 12 lead ECG [ECG] Routine Y 09/05/16 15:26 Completed EV renal artery image Routine Y 09/05/16 19:27 Completed Date of admission: 09/04/16 18:39 Primary care physician: Eugenio Rizzo Consults: 09/04/16 19:29 Consult to Nephrology [CONS] Routine Consulting Provider: [facility] Reason for Consult: 75F with Acute kidney failure and metabolic acidosis. Cr 8.64 Call Completed: Yes 09/07/16 07:16 dietary consult [Consult to Nutrition] [CONS] Routine Comment: Consulting Provider: NUTRITION Reason for Dietary Consult: Supplemental Nutrition Discharging clinician: Pako Barragan Anticipated date of discharge: 09/08/16 - Patient Status Disposition: Home, Self-Care Condition: Fair Functional capacity at discharge: independent ambulation Overall status at discharge: patient is progressing back to baseline - Discharge Instructions Follow Up With: EUGENIO RIZZO [Other] - 09/15/16 1:20 pm Tom Lewis DO [Non-Partnered Physician] - 10/12/16 11:45 am (PLEASE TAKE INSURANCE CARDS, PHOTO ID AND LIST OF ALL MEDICATIONS) NO,PCP [Non-Partnered Physician] - - Diet and Activity Activity: resume usual activities as tolerated Diet: low fat, low cholesterol, low salt diet, other (renal diet) Interval History: See below Hospital course: Ms. Florentino is a 75 year old female 75-year-old female with past medical history of hypertension, chronic kidney disease stage III, tobacco abuse. She presented to [facility] emergency room with complaints of lightheadedness for the last several days she reported a decrease in appetite with stools once a day but otherwise had no episodes of passing out, no palpitations, no chest pain, no shortness of breath. She reported a dry cough. Evaluation at [facility] revealed that she had acute kidney failure with BUN of 131 and creatinine of 8.64. She was in metabolic acidosis with an anion gap of 17 and pH of 7.18. White blood cell count was mildly elevated at 12.2. Head CT showed no acute abnormality. Chest x-ray showed right lower lobe patchy infiltrate. EKG showed normal sinus rhythm. CT of the abdomen and pelvis showed no obstructive uropathy, cholelithiasis, diverticulosis, left renal cyst, and bilateral lower lobe central lobe tree-in-bud nodules indicating post infectious/inflammatory origin She Was admitted to the hospital for management of acute on chronic renal failure, sepsis secondary to right lower lobe pneumonia, and hand gap metabolic acidosis secondary to ALLYSON on CKD Acute kidney injury was non-oliguric, prerenal, multifactorial secondary to dehydration, sepsis, and possible exacerbation by patient's home dose of lisinopril and hydrochlorothiazide. She was started on IV fluid hydration, nephrotoxins were avoided. Renal ultrasound revealed increased echogenicity of the kidneys suggestive of chronic medical renal disease and renal artery Doppler was within normal limits. Renal function improved. The patient's baseline creatinine is 2.2, creatinine has improved from 8.6, to 3.4 today. She is seen at bed side this morning, she has no new complaints, sepsis is resolved, and she is stable to be discharged home She is educated to follow up with her PCP, and kidney specialist outside. She has right lower lobe pneumonia and was treated with Zosyn and vancomycin initially, blood cultures were negative and his vancomycin was discontinued, she will be discharged on Augmentin by mouth to complete 7 days of therapy. Her home Lisinopril-HCTZ was no resumed and has been discontinued due to worsening renal function, she was started on labetalol po for HTN, with good response. I Spent 3 minutes educating patient about tobacco cessation. She does not require any nicotine replacement at this time. She also refused a flu and pneumococcal vaccines. Time spent discussing smoking cessation with patient: 3 to 10 minutes - Time Spent with Patient Total time spent providing and/or coordinating discharge services: Less than 30 minutes - Constitutional Vitals: Temp Pulse Resp BP Pulse Ox 98.0 F 58 14 139/72 92 L 09/08/16 07:34 09/08/16 08:16 09/08/16 08:16 09/08/16 07:34 09/08/16 08:16 General appearance: Present: A&O X 3, pleasant, no acute distress - Head Head exam: Present: atraumatic, normocephalic - Eye Eye exam: Present: PERRL, conjuntiva pink, sclera anicteric Pupils: Present: PERRL - Neck Neck exam general surgery: Present: supple, trachea midline. Absent: lymphadenopathy - Respiratory Respiratory exam: Present: CTAB. Absent: accessory muscle use, rales, rhonchi, wheezes - Cardiovascular Cardiovascular exam: Present: RRR, +S1, +S2. Absent: diastolic murmur, gallop, rubs, systolic murmur - GI/Abdominal GI/Abdominal exam: Present: normal bowel sounds, soft, no peritoneal signs. Absent: distended, tenderness - Extremities Exam Extremities exam: Present: warm, radial pulses palpable and symetrical. Absent : calf tenderness, cyanotic, pedal edema - Neurological Exam Neurological exam: Present: CN II-XII intact, oriented X3, no focal deficits. Absent: pronater drift, facial droop, speech deficit - Skin Skin exam: Present: dry, intact
[2016-09-08 10:00] LABS: Bilirubin,Urine Negative (Negative); Blood,Urine Small (Negative); Clarity,Urine Clear (Clear); Color,Urine Yellow (Yellow); Glucose,Urine (UA) Normal (Normal); Ketones,Urine Negative (Negative); Leukocyte Esterase,Urine Negative (Negative); Nitrite,Urine Negative (Negative); Protein,Urine 30 mg/dL (Neg-Trace); Specific Gravity,Urine 1.018 (1.010-1.025); Urobilinogen,Urine Normal (Normal)
[2016-09-08 10:02] LABS: Bacteria,Urine None Seen per hpf (None-Few); Hyaline Casts,Urine None Seen per lpf (None-Few); RBC,Urine 0-3 per hpf (0-3); Squamous Epithelial Cell,Urine Many per lpf (None-Few)
[2016-09-08 10:50] VITALS: BP 120/86
== END 2016-09-08 15:20 | disposition home or self-care (01) | DRG 871 ==
LOC: 2NNU → SUATTDRO 18:39
PROVIDERS: ADMIT Internal Medicine; ATTEND Internal Medicine

== ENCOUNTER 2021-11-08 09:15 | Observation (INO) ==
[2021-11-08 09:24] VITALS: PULSE 78
[2021-11-08 11:49] LABS: Basophils % 0.1 %; Eosinophils % 0.3 %; Hematocrit 33.9 % (35.3-44.9); Hemoglobin 10.3 g/dL (11.5-15.4); Immature Granulocytes % 0.7 % (0-4); Lymphocytes # 0.9 K/mcL (0.6-4.6); Lymphocytes % 6.5 %; Mean Corpuscular HGB Conc 30.4 g/dL (31.6-35.5); Mean Corpuscular Hemoglobin 34.3 pg (28.0-33.3); Mean Platelet Volume 11.1 fL (9.4-12.4); Monocytes # 0.9 K/mcL (0.0-1.3); Monocytes % 6.3 %; Neutrophils # 11.9 K/mcL (1.6-8.9); Nucleated Red Blood Cells 0.8 /100 WBC (0); Platelet Count 264 K/mcL (140-400); Segmented Neutrophils % 86.1 %; White Blood Count 13.8 K/mcL (4.3-11.1)
[2021-11-08 12:08] LABS: Macrocytosis Present (Not Present); Platelet Estimate Normal (Normal)
[2021-11-08 12:09] LABS: Calcium 9.1 mg/dL (8.6-10.3); Potassium 4.1 mEq/L (3.5-5.1)
[2021-11-08 12:28] VITALS: O2SAT 98
[2021-11-08] MEDS ORDERED: 0.9 % Sodium Chloride 250 ML IVC PRN (13:26)
[2021-11-08] MEDS ORDERED: 0.9 % Sodium Chloride 1,000 ML PRIME SCH (13:30)
[2021-11-08] MEDS ORDERED: Naloxone 0.4 MG/ML INJ IVP PRN (13:54)
[2021-11-08 14:53] LABS: Hepatitis B Surface Antibody < 3.10 mIU/mL
[2021-11-08 15:04] LABS: Hepatitis B Surface Antigen Nonreactive (Nonreactive)
[2021-11-08 18:18] VITALS: BP 117/54; TEMP 97.9
== END 2021-11-08 18:05 | disposition home or self-care (01) ==
LOC: 2ANU 09:15 → EMEROOARM 09:15 → 2ANU 14:10
PROVIDERS: ADMIT Student in an Organized Health Care Education/Training Program; ATTEND Student in an Organized Health Care Education/Training Program

== ENCOUNTER 2021-11-18 20:53 | Inpatient (IN) ==
[2021-11-19] MEDS ORDERED: Melatonin 3 MG TABLET PO PRN (00:30)
[2021-11-19] MEDS ORDERED: Ondansetron 4 MG/2 ML VIAL IVP PRN (00:30)
[2021-11-19] MEDS ORDERED: Naloxone 0.4 MG/ML INJ IVP PRN (00:30)
[2021-11-19] MEDS ORDERED: *HR* Heparin 5,000 UNIT/ML VIAL IVP PRN (00:34)
[2021-11-19 01:29] LABS: Basophils % 0.2 %; Eosinophils % 0.1 %; Hematocrit 28.9 % (35.3-44.9); Hemoglobin 8.5 g/dL (11.5-15.4); Lymphocytes % 5.4 %; Mean Corpuscular HGB Conc 29.4 g/dL (31.6-35.5); Mean Corpuscular Hemoglobin 32.2 pg (28.0-33.3); Mean Corpuscular Volume 109.5 fL (83.0-100.0); Mean Platelet Volume 12.2 fL (9.4-12.4); Monocytes # 1.8 K/mcL (0.0-1.3); Monocytes % 9.6 %; Neutrophils # 15.2 K/mcL (1.6-8.9); Nucleated Red Blood Cells 1.3 /100 WBC (0); Platelet Count 240 K/mcL (140-400); Red Blood Count 2.64 M/mcL (3.82-4.97); Red Cell Distribution Width 20.2 % (11.5-14.5); Segmented Neutrophils % 83.7 %; White Blood Count 18.1 K/mcL (4.3-11.1)
[2021-11-19 01:36] LABS: Heparin anti-factor XA UFH 0.54 IU/mL (0.30-0.70); INR 1.4; Prothrombin Time 15.4 Seconds (9.4-12.1)
[2021-11-19 01:56] LABS: Albumin 2.8 g/dL (3.5-5.7); Albumin/Globulin Ratio 1.3 (1.1-2.2); Bilirubin,Total 0.4 mg/dL (0.3-1.0); Globulin 2.1 g/dL (2.4-3.5); Phosphorous 6.1 mg/dL (2.7-4.5); Potassium 3.4 mEq/L (3.5-5.1); Total Protein 4.9 g/dL (6.4-8.9); Troponin I 0.99 ng/mL (< 0.04)
[2021-11-19] MEDS: Heparin 25,000UNIT/250ML 1/2NS 25,000 UNIT/250 ML IV.SOLN IVC SCH (02:19)
[2021-11-19] MEDS ORDERED: Perflutren Lipid Microsphere 1.3 ML in 0.9 % Sodium Chloride 8.7 ML IVP PRN (03:55)
[2021-11-19] MEDS: Aspirin Enteric Coated 81 MG Tablet PO SCH (08:38)
[2021-11-19 08:40] LABS: Basophils % 0.1 %; Eosinophils % 0.1 %; Hematocrit 30.9 % (35.3-44.9); Hemoglobin 9.2 g/dL (11.5-15.4); Immature Granulocytes % 1.2 % (0-4); Lymphocytes # 0.7 K/mcL (0.6-4.6); Lymphocytes % 3.8 %; Mean Corpuscular HGB Conc 29.8 g/dL (31.6-35.5); Mean Corpuscular Hemoglobin 32.9 pg (28.0-33.3); Mean Corpuscular Volume 110.4 fL (83.0-100.0); Mean Platelet Volume 11.9 fL (9.4-12.4); Monocytes # 1.4 K/mcL (0.0-1.3); Monocytes % 8.3 %; Nucleated Red Blood Cells 1.7 /100 WBC (0); Platelet Count 261 K/mcL (140-400); Red Cell Distribution Width 19.9 % (11.5-14.5); Segmented Neutrophils % 86.5 %; White Blood Count 17.3 K/mcL (4.3-11.1)
[2021-11-19 08:57] LABS: Anisocytosis 1+ (Not Present); Macrocytosis Present (Not Present); Platelet Estimate Normal (Normal)
[2021-11-19] MEDS: Cefepime HCl 1,000 MG in 0.9 % Sodium Chloride 10 ML IVP SCH (18:09)
[2021-11-20 03:07] LABS: Basophils # 0.1 K/mcL (0.0-0.2); Basophils % 0.3 %; Eosinophils # 0.1 K/mcL (0.0-0.6); Eosinophils % 0.7 %; Hematocrit 26.9 % (35.3-44.9); Hemoglobin 8.1 g/dL (11.5-15.4); Immature Granulocytes % 1.6 % (0-4); Lymphocytes # 1.2 K/mcL (0.6-4.6); Lymphocytes % 6.4 %; Mean Corpuscular HGB Conc 30.1 g/dL (31.6-35.5); Mean Corpuscular Hemoglobin 32.8 pg (28.0-33.3); Mean Corpuscular Volume 108.9 fL (83.0-100.0); Mean Platelet Volume 12.3 fL (9.4-12.4); Monocytes % 10.3 %; Neutrophils # 15.6 K/mcL (1.6-8.9); Nucleated Red Blood Cells 2.5 /100 WBC (0); Platelet Count 250 K/mcL (140-400); Red Blood Count 2.47 M/mcL (3.82-4.97); Segmented Neutrophils % 80.7 %; White Blood Count 19.3 K/mcL (4.3-11.1)
[2021-11-20 03:27] LABS: Calcium 8.7 mg/dL (8.6-10.3)
[2021-11-20 03:36] LABS: % Iron Saturation 31 % (15-50); Iron 50 mcg/dL (50-170); Transferrin 115 mg/dL (203-362)
[2021-11-20 03:39] LABS: Ferritin 350 ng/mL (10-120)
[2021-11-20 04:34] LABS: Hepatitis B Surface Antibody < 3.10 mIU/mL
[2021-11-20 04:44] LABS: Hepatitis B Surface Antigen Nonreactive (Nonreactive)
[2021-11-20] MEDS ORDERED: Ethyl Chloride Spray Bottle (104 SPRAY/BOTTLE) TP PRN (07:26)
[2021-11-20] MEDS ORDERED: 0.9 % Sodium Chloride 250 ML IVC PRN (07:26)
[2021-11-20] MEDS ORDERED: 0.9 % Sodium Chloride 2,000 ML PRIME SCH (07:30)
[2021-11-20] MEDS: Aspirin Enteric Coated 81 MG Tablet PO SCH (09:34)
[2021-11-20] MEDS: Heparin 25,000UNIT/250ML 1/2NS 25,000 UNIT/250 ML IV.SOLN IVC SCH ×2 (12:56)
[2021-11-20] MEDS ORDERED: Albumin 25% 25gram/100mL 25 GM/100 ML IV.SOLN IVPB ONE (12:59)
[2021-11-20] MEDS: Cefepime HCl 1,000 MG in 0.9 % Sodium Chloride 10 ML IVP SCH (17:09)
[2021-11-20] MEDS: *HR* Heparin 5,000 UNIT/ML VIAL IVP PRN (20:11)
[2021-11-21 02:41] LABS: Basophils % 0.2 %; Eosinophils # 0.3 K/mcL (0.0-0.6); Eosinophils % 1.5 %; Hematocrit 25.3 % (35.3-44.9); Hemoglobin 7.4 g/dL (11.5-15.4); Immature Granulocytes % 2.8 % (0-4); Lymphocytes # 1.3 K/mcL (0.6-4.6); Mean Corpuscular HGB Conc 29.2 g/dL (31.6-35.5); Mean Corpuscular Hemoglobin 32.9 pg (28.0-33.3); Mean Corpuscular Volume 112.4 fL (83.0-100.0); Mean Platelet Volume 12.4 fL (9.4-12.4); Monocytes # 1.7 K/mcL (0.0-1.3); Monocytes % 8.8 %; Nucleated Red Blood Cells 3.7 /100 WBC (0); Platelet Count 207 K/mcL (140-400); Red Blood Count 2.25 M/mcL (3.82-4.97); Red Cell Distribution Width 20.4 % (11.5-14.5); Segmented Neutrophils % 79.7 %; White Blood Count 18.8 K/mcL (4.3-11.1)
[2021-11-21 03:01] LABS: Calcium 8.4 mg/dL (8.6-10.3); Potassium 3.6 mEq/L (3.5-5.1)
[2021-11-21 03:12] LABS: Anisocytosis 2+ (Not Present); Macrocytosis Present (Not Present); Platelet Estimate Normal (Normal)
[2021-11-21] MEDS: *HR* Heparin 5,000 UNIT/ML VIAL IVP PRN (09:59)
[2021-11-21] MEDS: Aspirin Enteric Coated 81 MG Tablet PO SCH (10:00)
[2021-11-21] MEDS ORDERED: *HR* Midazolam HCl 5 MG/5 ML VIAL IVP PRN (10:37)
[2021-11-21] MEDS ORDERED: *HR* FentaNYL (PF) 100 MCG/2 ML VIAL IVP PRN (10:37)
[2021-11-21] MEDS ORDERED: 0.9 % Sodium Chloride 500 ML IVC ONE (10:37)
[2021-11-21] MEDS ORDERED: Lidocaine Viscous Oral Soln 15 ML SOLUTION MM PRN (10:37)
[2021-11-21] MEDS ORDERED: ISOVUE-370 200 ML INFUS..BTL ONE (12:48)
[2021-11-21] MEDS ORDERED: *HR* Heparin 10,000 UNIT/10 ML VIAL ONE (12:48)
[2021-11-21] MEDS ORDERED: Nitroglycerin 1,000 MCG/5 ML VIAL IV ONE (12:48)
[2021-11-21] MEDS ORDERED: Heparin 1,000 UNITS/500 mL 500 ML ONE (12:48)
[2021-11-21] MEDS ORDERED: 0.9 % Sodium Chloride 2,000 ML ONE (12:48)
[2021-11-21] MEDS ORDERED: *HR* FentaNYL (PF) 100 MCG/2 ML VIAL ONE (13:33)
[2021-11-21] MEDS ORDERED: *HR* Midazolam HCl 2 MG/2 ML VIAL ONE (13:33)
[2021-11-21] MEDS ORDERED: *HR* Phenylephrine 10 MG/ML VIAL ONE (13:57)
[2021-11-21] MEDS ORDERED: 0.9 % Sodium Chloride 1,000 ML IVC ONE (15:56)
[2021-11-21] MEDS ORDERED: 0.9 % Sodium Chloride 1,000 ML ONE (16:48)
[2021-11-21] MEDS ORDERED: D10% in Water 500 ML ONE (17:00)
[2021-11-21] MEDS ORDERED: *HR* Dextrose 50 % in Water (Syg) 50 ML SYRINGE ONE (17:00)
[2021-11-21] MEDS ORDERED: *HR* Dextrose 25% in Water (Syg) 10 ML SYRINGE IVP ONE (17:01)
[2021-11-21] MEDS ORDERED: *HR* Dextrose 50 % in Water (Syg) 50 ML SYRINGE IVP ONE (17:01)
[2021-11-21 17:02] LABS: ABG Base Excess -4 mEq/L (-2 to 3); ABG HCO3 23 mEq/L (21-27); ABG Oxygen Saturation 92 % (95-98); ABG PCO2 49 mmHg (35-45); ABG PH 7.28 pH Units (7.32-7.45); ABG PO2 74 mmHg (85-104); ABG TCO2 24 mEq/L (20-26)
[2021-11-21] MEDS: Norepinephrine 4 MG/254 ML IV.SOLN IVC SCH (17:10)
[2021-11-21 17:12] LABS: Eosinophils % 0.8 %; Hematocrit 24.9 % (35.3-44.9)
[2021-11-21 17:13] LABS: Basophils % 0.2 %; Eosinophils # 0.1 K/mcL (0.0-0.6); Hemoglobin 7.3 g/dL (11.5-15.4); Immature Granulocytes % 2.2 % (0-4); Lymphocytes # 1.1 K/mcL (0.6-4.6); Lymphocytes % 7.1 %; Mean Corpuscular HGB Conc 29.3 g/dL (31.6-35.5); Mean Corpuscular Volume 115.8 fL (83.0-100.0); Mean Platelet Volume 12.1 fL (9.4-12.4); Monocytes # 1.2 K/mcL (0.0-1.3); Neutrophils # 12.6 K/mcL (1.6-8.9); Nucleated Red Blood Cells 4.9 /100 WBC (0); Platelet Count 186 K/mcL (140-400); Red Blood Count 2.15 M/mcL (3.82-4.97); Red Cell Distribution Width 20.9 % (11.5-14.5); Segmented Neutrophils % 81.7 %; White Blood Count 15.4 K/mcL (4.3-11.1)
[2021-11-21 17:49] LABS: Basophilic Stippling 1+ (Not Present); Hypochromasia Present (Not Present); Macrocytosis Present (Not Present); Polychromasia 1+ (Not Present)
[2021-11-21 17:50] LABS: Platelet Estimate Normal (Normal)
[2021-11-21] MEDS: *HR* Heparin 5,000 UNIT/ML VIAL SQ SCH (18:10)
[2021-11-21] MEDS: Cefepime HCl 1,000 MG in 0.9 % Sodium Chloride 10 ML IVP SCH (18:54)
[2021-11-22] MEDS: Norepinephrine 4 MG/254 ML IV.SOLN IVC SCH ×6 (00:33→18:12)
[2021-11-22 01:28] LABS: Basophils # 0.1 K/mcL (0.0-0.2); Basophils % 0.3 %; Eosinophils # 0.1 K/mcL (0.0-0.6); Eosinophils % 0.6 %; Hematocrit 26.7 % (35.3-44.9); Hemoglobin 7.9 g/dL (11.5-15.4); Immature Granulocytes % 2.6 % (0-4); Lymphocytes # 0.8 K/mcL (0.6-4.6); Mean Corpuscular HGB Conc 29.6 g/dL (31.6-35.5); Mean Corpuscular Hemoglobin 33.8 pg (28.0-33.3); Mean Corpuscular Volume 114.1 fL (83.0-100.0); Mean Platelet Volume 12.2 fL (9.4-12.4); Monocytes # 1.5 K/mcL (0.0-1.3); Neutrophils # 16.1 K/mcL (1.6-8.9); Nucleated Red Blood Cells 10.9 /100 WBC (0); Platelet Count 242 K/mcL (140-400); Red Blood Count 2.34 M/mcL (3.82-4.97); Red Cell Distribution Width 21.2 % (11.5-14.5); Segmented Neutrophils % 84.5 %
[2021-11-22 01:42] LABS: Calcium 7.6 mg/dL (8.6-10.3); Potassium 3.8 mEq/L (3.5-5.1)
[2021-11-22] MEDS: *HR* Heparin 5,000 UNIT/ML VIAL SQ SCH ×2 (04:04→17:09)
[2021-11-22] MEDS ORDERED: 0.9 % Sodium Chloride 250 ML IVC PRN (07:24)
[2021-11-22] MEDS ORDERED: Albumin 25% 25gram/100mL 25 GM/100 ML IV.SOLN IVPB PRN (07:24)
[2021-11-22] MEDS ORDERED: Albumin Human 5% 12.5 GM/250 ML IV.SOLN ONE (08:03)
[2021-11-22] MEDS: Aspirin Enteric Coated 81 MG Tablet PO SCH (08:05)
[2021-11-22] MEDS: Albumin Human 5% 12.5 GM/250 ML IV.SOLN IVPB SCH ×2 (08:13→15:54)
[2021-11-22] MEDS ORDERED: *HR* Heparin 5,000 UNIT/ML VIAL IVP PRN (08:16)
[2021-11-22] MEDS ORDERED: Calcium Gluconate 1gm/50mL 1 GM/50 ML BAG IVPB PRN ×2 (08:16)
[2021-11-22] MEDS ORDERED: 0.9 % Sodium Chloride 1,000 ML PRIME SCH (08:30)
[2021-11-22] MEDS ORDERED: PrismaSATE BGK 4/2.5 5,000 ML CRRT SCH ×2 (08:30)
[2021-11-22] MEDS ORDERED: Calcium Chloride 4,000 MG in 0.9 % Sodium Chloride 1,000 ML CRRT SCH (08:30)
[2021-11-22] MEDS: SODIUM CITRATE 500 ML CRRT SCH ×2 (12:25→18:34)
[2021-11-22] MEDS: Heparin 25,000UNIT/250ML 1/2NS 25,000 UNIT/250 ML IV.SOLN IVC SCH (13:49)
[2021-11-22 16:03] VITALS: TEMP 97.8
[2021-11-22 17:08] VITALS: O2SAT 100
[2021-11-22] MEDS: Cefepime HCl 1,000 MG in 0.9 % Sodium Chloride 10 ML IVP SCH (17:09)
[2021-11-22] MEDS ORDERED: Ringers Solution, Lactated 500 ML ONE (18:05)
[2021-11-22] MEDS ORDERED: Ringers Solution, Lactated 250 ML IVC PRN (18:14)
[2021-11-22 18:18] VITALS: BP 66/29; PULSE 110
[2021-11-22] MEDS: Phenylephrine 50 MG in 0.9 % Sodium Chloride 250 ML IVC SCH ×2 (18:31→18:35)
[2021-11-22] MEDS ORDERED: Phenylephrine 100 MG in 0.9 % Sodium Chloride 250 ML IVC SCH (19:15)
[2021-11-22] MEDS ORDERED: *HR* LORazepam 2 MG/ML VIAL IVP PRN (19:30)
== END 2021-11-22 19:35 | disposition expired ==
LOC: 2ANU → 2NNU 11-21 16:25 → ICNU 11-21 17:16
PROVIDERS: ADMIT Student in an Organized Health Care Education/Training Program; ATTEND Student in an Organized Health Care Education/Training Program